=== PATIENT | female | born 1970 | race Native Hawaiian/Other Pacific Islander ===

== ENCOUNTER 2016-11-13 06:24 | Inpatient (IN) | payer SELFPAY ==
[2016-11-13 06:55] LABS: RBC URINE 5 /hpf (0-3); URINE BACTERIA RARE (<OCC); URINE BILIRUBIN NEGATIVE (NEGATIVE); URINE BLOOD 3+ (NEGATIVE); URINE COLOR Yellow (YELLOW); URINE GLUCOSE (UA) NORMAL (Normal); URINE KETONE NEGATIVE (NEGATIVE); URINE LEUKOCYTE ESTERASE 1+ Leu/uL (Negative); URINE PROTEIN NEGATIVE (NEGATIVE); URINE UROBILINOGEN NORMAL mg/dL (0.2-1.0); WBC URINE 19 /hpf (0-5)
[2016-11-13 07:02] LABS: BASO # 0.1 K/uL (0.0-0.2); EOS # 0.3 K/uL (0.0-0.7); EOS % 3.3 % (0.0-4.0); HEMATOCRIT 43.2 % (34.0-47.0); LYMPH # 3.1 K/uL (1.0-4.3); LYMPH % 34.4 % (20.0-40.0); MEAN CELL VOLUME 87.8 fL (81.0-99.0); MEAN CORPUSCULAR HEMOGLOBIN 28.5 pg (27.0-31.0); MEAN CORPUSCULAR HGB CONC 32.5 g/dL (33.0-37.0); MEAN PLATELET VOLUME 7.9 fL (7.2-11.7); MONO # 0.7 K/uL (0.0-0.8); MONO % 7.7 % (0.0-10.0); RED CELL DISTRIBUTION WIDTH 13.6 % (11.5-14.5)
[2016-11-13 07:36] LABS: ALB/GLOB RATIO 1.2 (1.0-2.1); ALKALINE PHOSPHATASE 65 U/L (38-126); ALT/SGPT 29 U/L (9-52); AST/SGOT 25 U/L (14-36); BILIRUBIN,TOTAL 0.3 mg/dL (0.2-1.3); BLOOD UREA NITROGEN 10 mg/dL (7-17); CALCIUM 9.2 mg/dl (8.6-10.4); CARBON DIOXIDE 24 mmol/L (22-30); CHLORIDE 105 mmol/L (98-107); GFR AFRICAN-AMERICAN > 60; GLUCOSE,RANDOM 78 mg/dL (65-105); POTASSIUM 3.8 mmol/L (3.6-5.2); SODIUM 140 mmol/L (132-148); TOTAL PROTEIN 6.8 g/dL (6.3-8.3)
--- NOTE | 2016-11-13 08:19 | C.PDOC ---
History Of Present Illness Patient presents to ED c/o intermittent chest pain over the last 2 weeks, happening again this morning. CP often occurs at rest, is described as a heaviness sensation, worsens with deep breaths, is nonradiating. She denies SOB , nausea, diaphoresis, abdominal pain, fever. Patient admits to nonproductive cough. Patient is a cigarette smoker, has extensive cardiac history in immediate relatives (father, uncles with MIs/). She was seen yesterday by Dr. Moran, had EKG done, and was instructed to come to ED if symptoms returned. Time Seen by Provider: 11/13/16 07:08 Chief Complaint (Nursing): Chest Pain History Per: Patient History/Exam Limitations: no limitations Onset/Duration Of Symptoms: Days Current Symptoms Are (Timing): Still Present Severity: Mild Quality: "Pain", Other (heaviness) Associated Symptoms: denies: Nausea, Dyspnea, Diaphoresis Past Medical History Reviewed: Historical Data, Nursing Documentation, Vital Signs Vital Signs: Last Vital Signs Temp 98.0 F 11/13/16 16:00 Pulse 77 11/13/16 16:00 Resp 20 11/13/16 16:00 BP 124/84 11/13/16 16:00 Pulse Ox 99 11/13/16 16:00 - Medical History PMH: No Chronic Diseases Surgical History: Appendectomy Family History: States: NM, CAD - Social History Hx Alcohol Use: No Hx Substance Use: No - Immunization History Hx Tetanus Toxoid Vaccination: No Hx Influenza Vaccination: No Hx Pneumococcal Vaccination: No Review Of Systems Except As Marked, All Systems Reviewed And Found Negative. Constitutional: Negative for: Fever, Chills Cardiovascular: Positive for: Chest Pain. Negative for: Palpitations Respiratory: Negative for: Cough, Shortness of Breath Gastrointestinal: Negative for: Nausea, Vomiting, Abdominal Pain, Diarrhea Physical Exam - Physical Exam Appears: Well, Non-toxic, No Acute Distress Skin: Normal Color, Warm, Dry, No Rash Oral Mucosa: Moist Chest: Symmetrical Cardiovascular: Rhythm Regular Respiratory: Normal Breath Sounds, No Rales, No Rhonchi, No Wheezing Gastrointestinal/Abdominal: Normal Exam, Bowel Sounds, Soft, No Tenderness Extremity: Normal ROM, No Pedal Edema Neurological/Psych: Oriented x3 ED Course And Treatment - Laboratory Results Result Diagrams: 11/13/16 06:56 11/13/16 06:56 ECG: Interpreted By Me, Viewed By Me (NSR 92 bpm, normal axis, Q waves V2, V4-V6 , no acute ST changes) O2 Sat by Pulse Oximetry: 96 (RA) Pulse Ox Interpretation: Normal - Radiology CXR: Interpreted by Me, Viewed By Me CXR Interpretation: Yes: No Acute Disease. No: Infiltrates Progress Note: Blood work, CXR, EKG ordered and reviewed. Patient given PO ASA. - Physician Consult Information Physician Contacted: Kunal Heck Outcome Of Conversation: Discussed patient with hospitalist, agrees with obs telemetry for chest pain, r/o ACS. Dr. Moran (cardio) aware and will be doing stress test of patient. Disposition - Disposition Disposition: HOSPITALIZED Disposition Time: 09:42 Condition: STABLE - Clinical Impression Clinical Impression: Unstable angina, Abnormal EKG, Chest pain Decision To Admit - Pt Status Changed To: Hospital Disposition Of: Observation - . Bed Request Type: Telemetry Admitting Physician: Kunal Heck Patient Diagnosis: Chest pain, Abnormal EKG, Unstable angina
--- NOTE | 2016-11-13 08:38 | RAD ---
HISTORY: cp COMPARISON: No prior. TECHNIQUE: Chest PA and lateral FINDINGS: LUNGS: No active pulmonary disease. PLEURA: No significant pleural effusion identified. No pneumothorax apparent. CARDIOVASCULAR: Normal. OSSEOUS STRUCTURES: No significant abnormalities. VISUALIZED UPPER ABDOMEN: Normal. OTHER FINDINGS: None. IMPRESSION: No active disease.
[2016-11-13 08:51] LABS: PARTIAL THROMBOPLASTIN TIME 32 SECONDS (21-34)
--- NOTE | 2016-11-13 13:21 | CP.PCM.HP ---
<PoseySandy guardadoNusrat - Last Filed: 11/13/16 16:06> History of Present Illness - History of Present Illness History of Present Illness: CC: "Chest Pain" HPI: Patient is a 46 female patient with past medical history of chronic low back pain reporting to the ED complaining of chest pain beginning one week ago. Patient reports no pain presently. Patient describes the pain as a heavy pressure on her chest and denies radiation and provocation. Patient reports taking Ibuprofen 400mg for the pain which provided some relief. Patient reports the pain to be a 5 or 6 out of 10. Patient reports this past week is the first time she experienced this pain and went to see Dr. Moran yesterday who told her to go to the ED. PAtient states she did not come straight to the ED yesterday because she did not think it was an emergency but she got nervous today and came in. Patient also reports that her father this past September from an [place]. Patient reports constipation (last BM 11/11), sore throat (two weeks ago), and chronic back pain. Past Medical History: Chronic low back pain, Acne Past Surgical History: Appendectomy Family History: Father Stroke and [place] ( at 71 last September); Mother HTN Social History: Smokes 10 cigarettes per day for 20+ years, denies alcohol and drug use. Lives with sister and spouse, patient has no children, patient is currently menstruating, patient is self employed. Meds: Accutane, Ibuprofen 400mg PRN Present on Admission - Present on Admission Any Indicators Present on Admission: No Review of Systems - Constitutional Constitutional: absent: Chills, Fever, Headache, Weakness - EENT Eyes: absent: Blurred Vision, Change in Vision Nose/Mouth/Throat: Sore Throat (sore throat 2 weeks prior). absent: Nasal Congestion - Cardiovascular Cardiovascular: Chest Pain. absent: Chest Pain at Rest, Chest Pain with Activity, Dyspnea, Dyspnea on Exertion, Leg Edema, Lightheadedness, Palpitations , Syncope - Respiratory Respiratory: absent: Dyspnea, Wheezing, Stridor - Gastrointestinal Gastrointestinal: Constipation. absent: Diarrhea, Heartburn, Nausea, Vomiting - Genitourinary Genitourinary: absent: Difficulty Urinating, Dysuria, Hematuria - Musculoskeletal Musculoskeletal: absent: Numbness, Tingling - Neurological Neurological: absent: Dizziness, Numbness, Headaches, Lack of Coordination, Syncope - Psychiatric Psychiatric: Anxiety Past Patient History - Past Social History Smoking Status: Current Some Days Smoker - CARDIAC Hx Cardiac Disorders: Yes Hx Angina: Yes - NEUROLOGICAL Hx Syncope: Yes - PSYCHIATRIC Hx Substance Use: No - SURGICAL HISTORY Hx Appendectomy: Yes - ANESTHESIA Hx Anesthesia: Yes Hx Anesthesia Reactions: No Hx Malignant Hyperthermia: No Meds Allergies/Adverse Reactions: Allergies Allergy/AdvReac Type Severity Reaction Status Date / Time No Known Allergies Allergy Verified 11/13/16 06:38 Physical Exam - Constitutional Appears: No Acute Distress - Head Exam Head Exam: ATRAUMATIC, NORMAL INSPECTION, NORMOCEPHALIC - Eye Exam Eye Exam: EOMI, Normal appearance, PERRL. absent: Periorbital swelling, Periorbital tenderness Pupil Exam: NORMAL ACCOMODATION, PERRL - ENT Exam ENT Exam: Mucous Membranes Moist - Neck Exam Neck exam: Positive for: Full Rom, Normal Inspection. Negative for: Lymphadenopathy - Respiratory Exam Respiratory Exam: Clear to Auscultation Bilateral, NORMAL BREATHING PATTERN. absent: Rales, Rhonchi, Wheezes, Stridor - Cardiovascular Exam Cardiovascular Exam: REGULAR RHYTHM, RRR, +S1, +S2. absent: Bradycardia, Tachycardia, JVD - GI/Abdominal Exam GI & Abdominal Exam: Normal Bowel Sounds, Soft. absent: Distended, Tenderness - Extremities Exam Extremities exam: Positive for: normal inspection. Negative for: calf tenderness, pedal edema, tenderness - Neurological Exam Neurological exam: Alert, CN II-XII Intact, Oriented x3 - Expanded Neurological Exam Expanded Patient oriented to: person, place, time Cranial nerves: EOM's Intact: Normal Sensory exam: Lower Extremity Light Touch: Normal, Upper Extremity 2 Point Discrimination: Normal Neuro motor strength exam: Left Upper Extremity: 5, Right Upper Extremity: 5, Left Lower Extremity: 5, Right Lower Extremity: 5 Coma Scale Eye Opening: SPONTANEOUS Coma Scale Motor Response: OBEYS COMMANDS - Psychiatric Exam Psychiatric exam: Depressed, Normal Affect, Normal Mood - Skin Skin Exam: Normal Color, Warm Results - Vital Signs Recent Vital Signs: Last Vital Signs Temp 98 F 11/13/16 06:31 Pulse 69 11/13/16 08:34 Resp 20 11/13/16 08:34 BP 130/82 11/13/16 08:34 Pulse Ox 100 11/13/16 08:34 - Labs Result Diagrams: 11/13/16 06:56 11/13/16 06:56 Assessment & Plan (1) Chest pain Assessment and Plan: - EKG normal - f/u Nuclear Stress - Trop x1 - f/u Trop x2 - D-dimer negative Status: Acute <Maria RKunal - Last Filed: 11/13/16 17:46> Results - Vital Signs Recent Vital Signs: Last Vital Signs Temp 98.0 F 11/13/16 16:00 Pulse 77 11/13/16 16:00 Resp 20 11/13/16 16:00 BP 124/84 11/13/16 16:00 Pulse Ox 99 11/13/16 16:00 - Labs Result Diagrams: 11/13/16 06:56 11/13/16 06:56 Labs: Laboratory Results - last 24 hr 11/13/16 16:30 Total Creatine Kinase 72 CK-MB (Mass) < 0.22 Troponin I, Quant < 0.0120 Attending/Attestation - Attestation I have personally seen and examined this patient.: Yes I have fully participated in the care of the patient.: Yes I have reviewed all pertinent clinical information: Yes Notes (Text): 11/13/16 17:42 Medical attending: Patient was seen and examined by me, agrees the above note by senior medical writer. The patient was reporting intermittent chest pain, she just recently saw her automobile upholstery trim installer yesterday and was advised to come into the ER yesterday as well however she decided to come in the subsequent day. Furthermore were waiting on the results of a stress test that was just done today, her first cardiac enzyme was negative as well. We will put a call out to her automobile upholstery trim installer as well. The patient reports that she does smoke, and there is some family history of cardiac trouble as well. thank you Kunal Heck
--- NOTE | 2016-11-13 16:37 | CP.PCM.DIS ---
<Gael Poseyssdomonique Lovelace - Last Filed: 11/13/16 16:34> Provider - Provider Date of Admission: 11/13/16 09:42 Attending physician: Kunal Heck DO Time Spent in preparation of Discharge (in minutes): 40 Diagnosis - Discharge Diagnosis (1) Chest pain Status: Acute Hospital Course - Lab Results Lab Results: Most Recent Lab Values WBC 9.0 K/uL (4.8-10.8) 11/13/16 06:56 RBC 4.92 Mil/uL (3.80-5.20) 11/13/16 06:56 Hgb 14.0 g/dL (11.0-16.0) 11/13/16 06:56 Hct 43.2 % (34.0-47.0) 11/13/16 06:56 MCV 87.8 fL (81.0-99.0) 11/13/16 06:56 MCH 28.5 pg (27.0-31.0) 11/13/16 06:56 MCHC 32.5 g/dL (33.0-37.0) L 11/13/16 06:56 RDW 13.6 % (11.5-14.5) 11/13/16 06:56 Plt Count 313 K/uL (130-400) 11/13/16 06:56 MPV 7.9 fL (7.2-11.7) 11/13/16 06:56 Neut % (Auto) 53.6 % (50.0-75.0) 11/13/16 06:56 Lymph % (Auto) 34.4 % (20.0-40.0) 11/13/16 06:56 [place] % (Auto) 7.7 % (0.0-10.0) 11/13/16 06:56 Eos % (Auto) 3.3 % (0.0-4.0) 11/13/16 06:56 Baso % (Auto) 1.0 % (0.0-2.0) 11/13/16 06:56 Neut # 4.8 K/uL (1.8-7.0) 11/13/16 06:56 Lymph # 3.1 K/uL (1.0-4.3) 11/13/16 06:56 [place] # 0.7 K/uL (0.0-0.8) 11/13/16 06:56 Eos # 0.3 K/uL (0.0-0.7) 11/13/16 06:56 Baso # 0.1 K/uL (0.0-0.2) 11/13/16 06:56 PT 11.2 SECONDS (9.7-12.2) 11/13/16 08:27 INR 1.0 11/13/16 08:27 APTT 32 SECONDS (21-34) 11/13/16 08:27 D-Dimer, Quantitative < 200 ng/mlDDU (0-243) 11/13/16 08:27 Sodium 140 mmol/L (132-148) 11/13/16 06:56 Potassium 3.8 mmol/L (3.6-5.2) 11/13/16 06:56 Chloride 105 mmol/L (98-107) 11/13/16 06:56 Carbon Dioxide 24 mmol/L (22-30) 11/13/16 06:56 Anion Gap 16 (10-20) 11/13/16 06:56 BUN 10 mg/dL (7-17) 11/13/16 06:56 Creatinine 0.6 MG/DL (0.7-1.2) L 11/13/16 06:56 Est GFR ( Amer) > 60 11/13/16 06:56 Est GFR (Non-Af Amer) > 60 11/13/16 06:56 Random Glucose 78 mg/dL (65-105) 11/13/16 06:56 Calcium 9.2 mg/dl (8.6-10.4) 11/13/16 06:56 Total Bilirubin 0.3 mg/dL (0.2-1.3) 11/13/16 06:56 AST 25 U/L (14-36) 11/13/16 06:56 ALT 29 U/L (9-52) 11/13/16 06:56 Alkaline Phosphatase 65 U/L (38-126) 11/13/16 06:56 Troponin I < 0.0120 ng/mL (0.00-0.120) 11/13/16 06:56 Total Protein 6.8 g/dL (6.3-8.3) 11/13/16 06:56 Albumin 3.7 g/dL (3.5-5.0) 11/13/16 06:56 Globulin 3.1 gm/dL (2.2-3.9) 11/13/16 06:56 Albumin/Globulin Ratio 1.2 (1.0-2.1) 11/13/16 06:56 Urine Color Yellow (YELLOW) 11/13/16 06:46 Urine Clarity Hazy (Clear) 11/13/16 06:46 Urine pH 5.0 (5.0-8.0) 11/13/16 06:46 Ur Specific [place] 1.020 (1.003-1.030) 11/13/16 06:46 Urine Protein Negative mg/dL (NEGATIVE) 11/13/16 06:46 Urine Glucose (UA) Normal mg/dL (Normal) 11/13/16 06:46 Urine Ketones Negative mg/dL (NEGATIVE) 11/13/16 06:46 Urine Blood 3+ (NEGATIVE) H 11/13/16 06:46 Urine Nitrate Negative (NEGATIVE) 11/13/16 06:46 Urine Bilirubin Negative (NEGATIVE) 11/13/16 06:46 Urine Urobilinogen Normal mg/dL (0.2-1.0) 11/13/16 06:46 Ur Leukocyte Esterase 1+ Yusuf/uL (Negative) H 11/13/16 06:46 Urine WBC (Auto) 19 /hpf (0-5) H 11/13/16 06:46 Urine RBC (Auto) 5 /hpf (0-3) H 11/13/16 06:46 Ur Squamous Epith Cells 10 /hpf (0-5) H 11/13/16 06:46 Urine Bacteria Rare (<OCC) 11/13/16 06:46 Urine HCG, Qual Negative (NEGATIVE) 11/13/16 06:46 - Hospital Course Hospital Course: CC: "Chest Pain" HPI: Patient is a 46 female patient with past medical history of chronic low back pain reporting to the ED complaining of chest pain beginning one week ago. Patient reports no pain presently. Patient describes the pain as a heavy pressure on her chest and denies radiation and provocation. Patient reports taking Ibuprofen 400mg for the pain which provided some relief. Patient reports the pain to be a 5 or 6 out of 10. Patient reports this past week is the first time she experienced this pain and went to see Dr. Moran yesterday who told her to go to the ED. PAtient states she did not come straight to the ED yesterday because she did not think it was an emergency but she got nervous today and came in. Patient also reports that her father this past September from an [place]. Patient reports constipation (last BM 11/11), sore throat (two weeks ago), and chronic back pain. Past Medical History: Chronic low back pain, Acne Past Surgical History: Appendectomy Family History: Father Stroke and [place] ( at 71 last September); Mother HTN Social History: Smokes 10 cigarettes per day for 20+ years, denies alcohol and drug use. Lives with sister and spouse, patient has no children, patient is currently menstruating, patient is self employed. Meds: Accutane, Ibuprofen 400mg PRN Hospital Course: 11/13/16: Patient is a 46 female patient reporting to the ED complaining of chest pain beginning one week ago. CXR Performed and showed no active disease. EKG performed and within normal limits. Myocardial perfusion scan performed and was normal. Dr. Moran contacted and cleared patient for discharge Patient stable for discharge per Dr. Heck and Dr. Moran. Patient to follow up with Dr. Moran within one week. Patient to resume all home medications. Patient to return to the emergency room if symptoms return or worsen. This is a brief summary of events. For a complete course, refer to the medical record. Discharge Exam - Head Exam Head Exam: ATRAUMATIC, NORMAL INSPECTION, NORMOCEPHALIC - Eye Exam Eye Exam: EOMI, Normal appearance, PERRL Pupil Exam: NORMAL ACCOMODATION, PERRL - ENT Exam ENT Exam: Mucous Membranes Moist - Respiratory Exam Respiratory Exam: Clear to PA & Lateral, NORMAL BREATHING PATTERN, UNREMARKABLE - Cardiovascular Exam Cardiovascular Exam: REGULAR RHYTHM, RRR, +S1, +S2. absent: JVD - GI/Abdominal Exam GI & Abdominal Exam: Normal Bowel Sounds, Soft. absent: Tenderness - Extremities Exam Extremities exam: normal inspection - Neurological Exam Neurological exam: Alert, Oriented x3 - Psychiatric Exam Psychiatric exam: Normal Affect, Normal Mood - Skin Skin Exam: Normal Color, Warm Discharge Plan - Follow Up Plan Condition: GOOD Disposition: HOME/ ROUTINE Instructions: Chest Pain (DC) Additional Instructions: TO FOLLOW UP WITH WITHIN ONE WEEK. IF SYMPTOMS RETURN OR WORSEN GO TO THE NEAREST EMERGENCY ROOM. Referrals: Cat Moran MD [Staff Provider] - <Kunal Heck - Last Filed: 11/13/16 17:48> Provider - Provider Date of Admission: 11/13/16 09:42 Attending physician: Kunal Heck DO Hospital Course - Lab Results Lab Results: Most Recent Lab Values WBC 9.0 K/uL (4.8-10.8) 11/13/16 06:56 RBC 4.92 Mil/uL (3.80-5.20) 11/13/16 06:56 Hgb 14.0 g/dL (11.0-16.0) 11/13/16 06:56 Hct 43.2 % (34.0-47.0) 11/13/16 06:56 MCV 87.8 fL (81.0-99.0) 11/13/16 06:56 MCH 28.5 pg (27.0-31.0) 11/13/16 06:56 MCHC 32.5 g/dL (33.0-37.0) L 11/13/16 06:56 RDW 13.6 % (11.5-14.5) 11/13/16 06:56 Plt Count 313 K/uL (130-400) 11/13/16 06:56 MPV 7.9 fL (7.2-11.7) 11/13/16 06:56 Neut % (Auto) 53.6 % (50.0-75.0) 11/13/16 06:56 Lymph % (Auto) 34.4 % (20.0-40.0) 11/13/16 06:56 [place] % (Auto) 7.7 % (0.0-10.0) 11/13/16 06:56 Eos % (Auto) 3.3 % (0.0-4.0) 11/13/16 06:56 Baso % (Auto) 1.0 % (0.0-2.0) 11/13/16 06:56 Neut # 4.8 K/uL (1.8-7.0) 11/13/16 06:56 Lymph # 3.1 K/uL (1.0-4.3) 11/13/16 06:56 [place] # 0.7 K/uL (0.0-0.8) 11/13/16 06:56 Eos # 0.3 K/uL (0.0-0.7) 11/13/16 06:56 Baso # 0.1 K/uL (0.0-0.2) 11/13/16 06:56 PT 11.2 SECONDS (9.7-12.2) 11/13/16 08:27 INR 1.0 11/13/16 08:27 APTT 32 SECONDS (21-34) 11/13/16 08:27 D-Dimer, Quantitative < 200 ng/mlDDU (0-243) 11/13/16 08:27 Sodium 140 mmol/L (132-148) 11/13/16 06:56 Potassium 3.8 mmol/L (3.6-5.2) 11/13/16 06:56 Chloride 105 mmol/L (98-107) 11/13/16 06:56 Carbon Dioxide 24 mmol/L (22-30) 11/13/16 06:56 Anion Gap 16 (10-20) 11/13/16 06:56 BUN 10 mg/dL (7-17) 11/13/16 06:56 Creatinine 0.6 MG/DL (0.7-1.2) L 11/13/16 06:56 Est GFR ( Amer) > 60 11/13/16 06:56 Est GFR (Non-Af Amer) > 60 11/13/16 06:56 Random Glucose 78 mg/dL (65-105) 11/13/16 06:56 Calcium 9.2 mg/dl (8.6-10.4) 11/13/16 06:56 Total Bilirubin 0.3 mg/dL (0.2-1.3) 11/13/16 06:56 AST 25 U/L (14-36) 11/13/16 06:56 ALT 29 U/L (9-52) 11/13/16 06:56 Alkaline Phosphatase 65 U/L (38-126) 11/13/16 06:56 Total Creatine Kinase 72 U/L (30-135) 11/13/16 16:30 CK-MB (Mass) < 0.22 ng/mL (0.0-3.38) 11/13/16 16:30 Troponin I < 0.0120 ng/mL (0.00-0.120) 11/13/16 06:56 Troponin I, Quant < 0.0120 ng/mL (0.00-0.120) 11/13/16 16:30 Total Protein 6.8 g/dL (6.3-8.3) 11/13/16 06:56 Albumin 3.7 g/dL (3.5-5.0) 11/13/16 06:56 Globulin 3.1 gm/dL (2.2-3.9) 11/13/16 06:56 Albumin/Globulin Ratio 1.2 (1.0-2.1) 11/13/16 06:56 Urine Color Yellow (YELLOW) 11/13/16 06:46 Urine Clarity Hazy (Clear) 11/13/16 06:46 Urine pH 5.0 (5.0-8.0) 11/13/16 06:46 Ur Specific [place] 1.020 (1.003-1.030) 11/13/16 06:46 Urine Protein Negative mg/dL (NEGATIVE) 11/13/16 06:46 Urine Glucose (UA) Normal mg/dL (Normal) 11/13/16 06:46 Urine Ketones Negative mg/dL (NEGATIVE) 11/13/16 06:46 Urine Blood 3+ (NEGATIVE) H 11/13/16 06:46 Urine Nitrate Negative (NEGATIVE) 11/13/16 06:46 Urine Bilirubin Negative (NEGATIVE) 11/13/16 06:46 Urine Urobilinogen Normal mg/dL (0.2-1.0) 11/13/16 06:46 Ur Leukocyte Esterase 1+ Yusuf/uL (Negative) H 11/13/16 06:46 Urine WBC (Auto) 19 /hpf (0-5) H 11/13/16 06:46 Urine RBC (Auto) 5 /hpf (0-3) H 11/13/16 06:46 Ur Squamous Epith Cells 10 /hpf (0-5) H 11/13/16 06:46 Urine Bacteria Rare (<OCC) 11/13/16 06:46 Urine HCG, Qual Negative (NEGATIVE) 11/13/16 06:46 Attending/Attestation - Attestation I have personally seen and examined this patient.: Yes I have fully participated in the care of the patient.: Yes I have reviewed all pertinent clinical information, including history, physical exam and plan: Yes Notes (Text): Medical Attending: Patient was seen and examined by me. She completed the nuclear stress test already. She really wanted to go home. She reported no chest pain by later on in the day. Cardiology was notified as well Patient will be discharged today. We had a brief conversation about her smoking as well and life style changes as well thank you Kunal Heck 11/13/16 17:47
[2016-11-13] MEDS ORDERED: Pneumococcal 23-Valent Vaccine IM ONE (16:45)
[2016-11-13 16:47] VITALS: BP 124/84; PULSE 77; RESP 20; TEMP 98
--- NOTE | 2016-11-13 18:42 | CARD ---
APPROVED REPORT EKG Measurement Heart [id number] <Conclusion> Normal sinus rhythm Possible Left atrial enlargement Poor R wave progression. Abnormal ECG
[2016-11-17 11:28] VITALS: O2SAT 96
--- NOTE | 2016-11-25 20:06 | CARD ---
APPROVED REPORT Protocol: [facility] Test Type: NUCLEAR STRESS Test Indications: CP Target HR: 173 bpm Resting ECG: septal Q waves Resting Heart Rate: 100 bpm Resting Blood Pressure: 132/80mmHg submaximum (85%): 147 bpm TEST SUMMARY PRETESTWARM-UP25:[id number]. EXERCISESTAGE [id number]/80.0. EXERCISESTAGE 201:[id number]/80.0. [id number]. POST EXERCISE Reason for Termination: Fatigue Target HR: No Max HR: 141 bpm 81% of Maximum Predicted HR: 173 bpm Exercise duration: 04:16 min:sec, 2 Stage Exercise capacity: 7.0METs Max Blood Pressure: 142/80mmHg Blood Pressure response to exercise: normal resting BP - appropriate response Heart Rate response to exercise: appropriate Chest Pain: No, none Angina index: 0 Arrhythmia: No, none ST Change: No, none Deviation: 0 mm INTERPRETATION Stress EKG Conclusion: AWAIT NUCLEAR IMAGES EXAM: Myocardial Perfusion STRESS/REST Imaging Protocol The imaging protocol used to acquire images was Stress Tc-99m/rest Tc-99m 1 day Stress Spect myocardial perfusion imaging was performed in supine position 39 minutes following the injection of 12.5 mCi of Tc-99 Myoview. Gated Rest Spect was performed 40 minutes after intravenous 32.3 mCi Tc-99 Myoview injection. The images were gated to evaluate regional wall motion and calculate ventricular ejection fraction.Images were reconstructed using backfilter projection method in short horizontal and verticle long axis. Spect slices were generated. RESTING DATA EDV55.67pyQH2.10L/min ESV9.00mlMyocardial Jzgc918.00g Av. Heart Rate90.00bpm EF84.00% STRESS DATA EDV53.24ojXO8.60L/min ESV10.00mlMyocardial Mass97.00g EF81.00% Regional WT score at stress:0.00 Regional WM score at stress:0.00 Summed WT score at stress:7.00 Av. Heart Rate84.00bpmSummed WM score at stress:0.00 LV Perf. Quant 17 Seg. SSS0.00 17 Seg. SRS0.00 17 Seg. SDS0.00 Stress Defect Extent (% LAD)0.00Rest Defect Extent (% LAD)0.00Rev. Defect Extent (% LAD)0.00 Stress Defect Extent (% LCX)0.00Rest Defect Extent (% LCX)0.00Rev. Defect Extent (% LCX)0.00 Stress Defect Extent (% RCA)0.00Rest Defect Extent (% RCA)0.00Rev. Defect Extent (% RCA)0.00 Stress Defect Extent (% PHILIPP)0.00Rest Defect Extent (% PHILIPP)0.00Rev. Defect Extent (% PHILIPP)0.00 Other Information Quality:Excellent Overall Exercise Capacity: Normal IMPRESSION Normal Myocardial Perfusion exercise stress study Global LV Function: Normal Stress Test Summary: Normal LV Perfusion Summary: Normal Left Ventricle LV Size/Shape: The left ventricle is normal size. LV Function:Left ventricle systolic function is normal. The Ejection Fraction is 55-60%. Regional Wall Motion:No regional wall motion abnormalities noted. Metabolism/Perfusion There are no perfusion/metabolism defects. Conclusion 1. The stress and resting images show normal perfusion.
== END 2016-11-13 17:00 | disposition home or self-care (01) | DRG 313 ==
LOC: C.ER 06:24 → C.9E 09:42 → C.6T 10:06
PROVIDERS: ADMIT Hospitalist; ATTEND Hospitalist
DX: R07.89 Other chest pain (principal); F17.210 Nicotine dependence, cigarettes, uncomplicated; G89.29 Other chronic pain; K59.00 Constipation, unspecified; M54.5 Low back pain; Z82.49 Family history of ischemic heart disease and other diseases of the circulatory system